=== PATIENT | female | born 1930 | race Caucasian/White ===

== ENCOUNTER 2016-03-16 13:49 | Emergency (ER) | payer MEDICARE, OTHER ==
[~2016-03-16 13:49] MED LIST: CHLORPHEN4 MG PO; COZAAR25 MG PO; HYDROCHLOROTH12.5 M1 PO; LOVASTATIN20 MG PO; METOPROLOL TART25 MG PO; TYLENOL 325MG325 M1 PO
[2016-03-16] MEDS ORDERED: CALCIUM CARBON600 M1 PO (13:57)
[2016-03-16] MEDS ORDERED: GOOD NEIGHBOR P1 T32 PO (13:58)
[2016-03-16 21:07] VITALS: BP 113/64
== END 2016-03-16 20:55 | disposition home or self-care (01) ==
LOC: ED 13:49
DX: J06.9 Acute upper respiratory infection, unspecified (principal); E86.9 Volume depletion, unspecified; I95.1 Orthostatic hypotension; I48.91 Unspecified atrial fibrillation; J40 Bronchitis, not specified as acute or chronic
CPT/HCPCS: J7030

== ENCOUNTER → 2016-03-19 | Outpatient (CLI) | payer MEDICARE, OTHER ==
[~2016-03-19] MED LIST changes: +CALCIUM CARBON600 M1 PO; +GOOD NEIGHBOR P1 T32 PO
[2016-03-19 14:45] VITALS: BP 131/77
== END ==
LOC: AMSURD 14:35
DX: R05 Cough (principal); J20.9 Acute bronchitis, unspecified; I48.0 Paroxysmal atrial fibrillation; I10 Essential (primary) hypertension

== ENCOUNTER → 2016-04-02 | Outpatient (CLI) | payer MEDICARE, OTHER | LOC: LAB 09:27 | DX: I10 Essential (primary) hypertension (principal) ==

== ENCOUNTER → 2017-04-07 | Outpatient (CLI) | payer MEDICARE, OTHER ==
[2016-03-19 14:45] VITALS: BP 131/77
[2017-04-07 10:24] LABS: ALBUMIN 3.6 g/dL (3.5-5.0); BUN/CREATININE RATIO 25.6 (6.0-26.0); CALCIUM 9.5 mg/dL (8.4-10.2); TOTAL BILIRUBIN 0.6 mg/dL (0.2-1.3); TOTAL PROTEIN 6.7 g/dL (6.3-8.2)
== END ==
LOC: LAB 09:56
PROVIDERS: Family Medicine
DX: I10 Essential (primary) hypertension (principal); E78.00 Pure hypercholesterolemia, unspecified

== ENCOUNTER → 2017-04-10 | Outpatient (CLI) | payer MEDICARE, OTHER ==
[2016-03-19 14:45] VITALS: BP 131/77
== END ==
LOC: LAB 13:53
DX: R73.09 Other abnormal glucose (principal); Z88.8 Allergy status to other drugs, medicaments and biological substances

== ENCOUNTER → 2018-04-19 | Outpatient (CLI) | payer MEDICARE, OTHER ==
[2016-03-19 14:45] VITALS: BP 131/77
[2018-04-19 10:23] LABS: CALCIUM 9.2 mg/dL (8.4-10.2); POTASSIUM 3.6 mmol/L (3.6-5.0); TOTAL BILIRUBIN 0.7 mg/dL (0.2-1.3)
== END ==
LOC: LAB 09:51
PROVIDERS: Family Medicine
DX: E78.00 Pure hypercholesterolemia, unspecified (principal)

== ENCOUNTER → 2018-04-29 | Outpatient (CLI) | payer MEDICARE, OTHER ==
[2016-03-19 14:45] VITALS: BP 131/77
== END ==
LOC: LAB 14:28
PROVIDERS: Family Medicine
DX: M85.80 Other specified disorders of bone density and structure, unspecified site (principal); R73.09 Other abnormal glucose; I47.1 Supraventricular tachycardia; I10 Essential (primary) hypertension; E78.00 Pure hypercholesterolemia, unspecified

== ENCOUNTER → 2018-05-05 | Outpatient (CLI) | payer MEDICARE, OTHER ==
[2016-03-19 14:45] VITALS: BP 131/77
== END ==
LOC: MAMMO 13:00 → RAD 13:00
DX: Z00.00 Encounter for general adult medical examination without abnormal findings (principal); M85.80 Other specified disorders of bone density and structure, unspecified site; M81.0 Age-related osteoporosis without current pathological fracture; I47.1 Supraventricular tachycardia; I10 Essential (primary) hypertension; E78.00 Pure hypercholesterolemia, unspecified; R73.09 Other abnormal glucose

== ENCOUNTER → 2019-07-01 | Outpatient (CLI) | payer MEDICARE, OTHER ==
[2016-03-19 14:45] VITALS: BP 131/77
[2019-07-01 11:18] LABS: POTASSIUM 4.2 mmol/L (3.5-5.1)
[2019-07-01 11:19] LABS: ALBUMIN 3.8 g/dL (3.4-4.8)
[2019-07-01 11:20] LABS: CALCIUM 9.3 mg/dL (8.3-10.5)
[2019-07-01 11:21] LABS: TOTAL PROTEIN 6.5 g/dL (6.2-8.1)
[2019-07-01 11:23] LABS: TOTAL BILIRUBIN 0.6 mg/dL (0.2-1.2)
== END ==
LOC: LAB 10:35
PROVIDERS: Family Medicine
DX: E78.00 Pure hypercholesterolemia, unspecified (principal); I10 Essential (primary) hypertension

== ENCOUNTER 2020-07-23 11:46 | Emergency (ER) | payer MEDICARE, OTHER ==
[2020-07-23 12:41] LABS: BASO # 0.03 (0.02-0.10); EOS # 0.17 (0.04-0.40); EOS % 3.5 % (1.0-5.0); HEMATOCRIT 44.1 % (37.0-47.0); HEMOGLOBIN 14.4 g/dL (12.5-16.0); LYMPH# 1.26 (1.50-4.00); MEAN CELL VOLUME 91 fl (78-100); MEAN CORPUSCULAR HEMOGLOBIN 30 pg (27-31); MEAN CORPUSCULAR HGB CONC 33 g/dL (33-37); MEAN PLATELET VOLUME 9.3 fl (7.4-10.4); NEU # 2.92 (1.40-6.50); PLATELET COUNT 180 K/mm3 (130-400); RED BLOOD COUNT 4.83 M/mm3 (4.10-5.30); WHITE BLOOD COUNT 4.9 K/mm3 (4.8-10.8)
[2020-07-23 12:49] LABS: ALBUMIN 3.6 g/dL (3.4-4.8); POTASSIUM 3.9 mmol/L (3.5-5.1)
[2020-07-23 12:51] LABS: CALCIUM 9.2 mg/dL (8.3-10.5)
[2020-07-23 12:52] LABS: TOTAL PROTEIN 6.5 g/dL (6.2-8.1)
[2020-07-23 12:54] LABS: TOTAL BILIRUBIN 0.8 mg/dL (0.2-1.2)
[2020-07-23 13:00] VITALS: BP 202/87
== END 2020-07-23 12:58 | disposition home or self-care (01) ==
LOC: ED 11:46
PROVIDERS: Nurse Practitioner
DX: S90.31XA Contusion of right foot, initial encounter (principal); I10 Essential (primary) hypertension; Z79.899 Other long term (current) drug therapy; W20.8XXA Other cause of strike by thrown, projected or falling object, initial encounter; Y93.89 Activity, other specified; Y92.096 Garden or yard of other non-institutional residence as the place of occurrence of the external cause; Y99.0 Civilian activity done for income or pay

== ENCOUNTER → 2020-12-21 | Outpatient (CLI) | payer MEDICARE, OTHER ==
[2020-12-21 15:52] LABS: BASO # 0.03 K/mm3 (0.02-0.10); EOS # 0.14 K/mm3 (0.04-0.40); EOS % 2.7 % (1.0-5.0); HEMATOCRIT 46.4 % (37.0-47.0); HEMOGLOBIN 14.7 g/dL (12.5-16.0); LYMPH# 1.55 K/mm3 (1.50-4.00); MEAN CELL VOLUME 93 fl (78-100); MEAN CORPUSCULAR HEMOGLOBIN 30 pg (27-31); MEAN CORPUSCULAR HGB CONC 32 g/dL (33-37); MEAN PLATELET VOLUME 9.5 fl (7.4-10.4); MONO # 0.54 K/mm3 (0.20-0.80); NEU # 3.01 K/mm3 (1.40-6.50); PLATELET COUNT 183 K/mm3 (130-400); RED BLOOD COUNT 4.97 M/mm3 (4.10-5.30); RED CELL DISTRIBUTION WIDTH 12.8 % (11.5-14.5); WHITE BLOOD COUNT 5.3 K/mm3 (4.8-10.8)
[2020-12-21 16:08] LABS: POTASSIUM 4.7 mmol/L (3.5-5.1)
[2020-12-21 16:09] LABS: CALCIUM 10.2 mg/dL (8.3-10.5)
[2020-12-21 16:15] LABS: MAGNESIUM 2.04 mg/dL (1.60-2.60)
[2020-12-21 17:15] LABS: ERYTHROCYTE SEDIMENTATION RATE 14 mm/hr (0-30)
== END ==
LOC: RAD 15:27
PROVIDERS: Family Medicine
DX: R19.7 Diarrhea, unspecified (principal)

== ENCOUNTER → 2021-02-12 | Outpatient (CLI) | payer MEDICARE, OTHER ==
[2021-02-12 10:03] LABS: ALBUMIN 3.9 g/dL (3.4-4.8)
[2021-02-12 10:05] LABS: TOTAL PROTEIN 6.9 g/dL (6.2-8.1)
[2021-02-12 10:07] LABS: TOTAL BILIRUBIN 0.9 mg/dL (0.2-1.2)
[2021-02-12 10:11] LABS: DIRECT BILIRUBIN 0.3 mg/dL (0.0-0.5)
== END ==
LOC: LAB 09:34
PROVIDERS: Family Medicine
DX: E78.00 Pure hypercholesterolemia, unspecified (principal)